=== PATIENT | male | born 1975 | race Caucasian/White ===

== ENCOUNTER 2017-11-26 16:23 | Emergency (ER) | payer OTHER ==
[~2017-11-26] VITALS: Ht 188 cm; Wt 127.6 kg
[2017-11-26 16:26] VITALS: Ht 188 cm; Wt 127.6 kg
[2017-11-26] MEDS ORDERED: SODIUM CHLORIDE 0.9% 1000ML 1,000 ML IV STA (16:42)
[2017-11-26 17:34] LABS: BASO % 0.8 %; BASO ABS # 0.05 K/uL (0-0.2); EOS % 3.1 %; EOS ABS # 0.19 K/uL (0-0.5); HEMATOCRIT 40.8 % (42-52); HEMOGLOBIN 14.9 g/dL (14.0-18.0); IG# 0.01 K/uL (0.00-0.02); LYMPH % 27.7 %; MEAN CELL VOLUME 88.9 fL (80-100); MEAN CORPUSCULAR HEMOGLOBIN 32.5 pg (25-34); MEAN CORPUSCULAR HGB CONC 36.5 g/dl (32-36); MEAN PLATELET VOLUME 9.8 fL (7.4-10.4); MONO % 7.3 %; MONO ABS # 0.45 K/uL (0.11-0.59); NEUT % 60.9 %; NEUT ABS # 3.74 K/uL (1.4-6.5); NUCLEATED RED BLOOD CELL ABS 0.07 K/uL (0-0); PLATELET COUNT 131 K/uL (130-400); RED CELL DISTRIBUTION WIDTH CV 12.6 % (11.5-14.5); RED CELL DISTRIBUTION WIDTH SD 40.1 fL (36.4-46.3); WHITE BLOOD COUNT 6.14 K/uL (4.8-10.8)
[2017-11-26 18:13] LABS: ALBUMIN 3.7 gm/dl (3.4-5.0); CALCIUM 8.5 mg/dl (8.5-10.1); CREATININE 0.98 mg/dl (0.60-1.40); TOTAL PROTEIN 7.3 gm/dl (6.4-8.2)
[2017-11-26 18:30] LABS: POTASSIUM 3.9 mmol/L (3.5-5.1)
--- NOTE | 2017-11-26 18:51 | EMERGENCY ROOM VISIT NOTE ---
History First contact with patient: 16:30 Chief Complaint: HYPERGLYCEMIA Stated Complaint: HIGH SUGAR Nursing Triage Summary: pt states no hx diabetes, informed pcp he had been urinating every hour, pt states seen by pcp and had elevated bsg, then sent to ED. History of Present Illness The patient is a 41 year old male who presents to the Emergency Room with complaints of high blood sugar. Patient states that he was seen by his primary care provider yesterday for complaint of increased urination and increased thirst over the past 1-2 months, he had blood work done at that time. Today his PCP called stating that his blood sugar and hemoglobin A1c were significantly elevated and referred him to the emergency department for further treatment. Patient has no previous history of diabetes, this is a new diagnosis. The patient denies any recent illness, and states he has been feeling well except for the increased thirst and urination. Patient denies any chest pain, shortness of breath, abdominal pain, nausea or vomiting, diarrhea, dysuria, blood in his urine, fevers or chills, headaches, dizziness or syncope, or rash. Review of Systems A complete 10 point review of systems was reviewed with the patient with pertinent positives and negatives as per history of present illness. All else were negative. Past Medical/Surgical History Medical Problems: (1) Appendicitis (2) No pertinent past medical history Surgical Problems: (1) H/O arthroscopic knee surgery Family History Patient reports no known family medical history. Social History Smoking Status: Never Smoker Alcohol Use: occasionally Drug Use: none Marital Status: Housing Status: lives with significant other Occupation Status: employed Current/Historical Medications Scheduled Metformin Hcl (Glucophage), 1 TAB PO BID Allergies No known allergies Physical Exam Vital Signs Date Time Temp Pulse Resp B/P (MAP) Pulse Ox O2 Delivery O2 Flow Rate FiO2 11/26/17 20:49 36.7 79 18 143/85 92 11/26/17 19:22 79 18 143/85 92 Room Air 11/26/17 16:26 36.7 90 18 140/95 94 Room Air Physical Exam CONSTITUTIONAL: Pleasant and cooperative. No acute distress. Well hydrated, well appearing and well nourished. HEENT: Normocephalic, atraumatic. Pupils equal, round and reactive to light, EOMI. TMs normal. Pharynx normal. Moist mucous membranes. NECK: Supple, full active range of motion without discomfort. RESPIRATORY: Clear to auscultation bilaterally with no wheezing, crackles, rhonchi or stridor. Equal expansion bilaterally. CARDIOVASCULAR: Regular rate and rhythm with no murmurs, rubs or gallops. Normal peripheral perfusion. No edema. GASTROINTESTINAL: Soft, nontender, nondistended. No palpable masses or HSM. Bowel sounds present in all quadrants. MUSCULOSKELETAL: Full range of motion of all joints without discomfort. INTEGUMENTARY: No rash or other significant dermatologic conditions noted. NEUROLOGIC: Alert and oriented X 4 with normal affect. Cranial nerves II-XII grossly intact. No focal neurologic deficits noted. Normal speech. Normal gait observed. Medical Decision & Procedures Laboratory Results 11/26/17 17:09 Red Blood Count 4.59, Mean Corpuscular Volume 88.9, Mean Corpuscular Hemoglobin 32.5, Mean Corpuscular Hemoglobin Concent 36.5, Mean Platelet Volume 9.8, Neutrophils (%) (Auto) 60.9, Lymphocytes (%) (Auto) 27.7, Monocytes (%) (Auto) 7.3, Eosinophils (%) (Auto) 3.1, Basophils (%) (Auto) 0.8, Neutrophils # (Auto) 3.74, Lymphocytes # (Auto) 1.70, Monocytes # (Auto) 0.45, Eosinophils # (Auto) 0.19, Basophils # (Auto) 0.05 11/26/17 17:09 Test 11/26/17 17:03 11/26/17 17:09 11/26/17 17:15 11/26/17 17:19 Bedside Glucose 324 mg/dl (70-99) White Blood Count 6.14 K/uL (4.8-10.8) Red Blood Count 4.59 M/uL (4.7-6.1) Hemoglobin 14.9 g/dL (14.0-18.0) Hematocrit 40.8 % (42-52) Mean Corpuscular Volume 88.9 fL (80-100) Mean Corpuscular Hemoglobin 32.5 pg (25-34) Mean Corpuscular Hemoglobin Concent 36.5 g/dl (32-36) Platelet Count 131 K/uL (130-400) Mean Platelet Volume 9.8 fL (7.4-10.4) Neutrophils (%) (Auto) 60.9 % Lymphocytes (%) (Auto) 27.7 % Monocytes (%) (Auto) 7.3 % Eosinophils (%) (Auto) 3.1 % Basophils (%) (Auto) 0.8 % Neutrophils # (Auto) 3.74 K/uL (1.4-6.5) Lymphocytes # (Auto) 1.70 K/uL (1.2-3.4) Monocytes # (Auto) 0.45 K/uL (0.11-0.59) Eosinophils # (Auto) 0.19 K/uL (0-0.5) Basophils # (Auto) 0.05 K/uL (0-0.2) RDW Standard Deviation 40.1 fL (36.4-46.3) RDW Coefficient of Variation 12.6 % (11.5-14.5) Immature Granulocyte % (Auto) 0.2 % Immature Granulocyte # (Auto) 0.01 K/uL (0.00-0.02) Nucleated RBC Absolute Count (auto) 0.07 K/uL (0-0) Nucleated Red Blood Cells % 1.1 % Anion Gap 11.0 mmol/L (3-11) Est Creatinine Clear Calc Drug Dose 143.7 ml/min Estimated GFR () 112.1 Estimated GFR (Non- 96.7 BUN/Creatinine Ratio 17.7 (10-20) Calcium Level 8.5 mg/dl (8.5-10.1) Magnesium Level 2.1 mg/dl (1.8-2.4) Total Bilirubin 0.7 mg/dl (0.2-1) Aspartate Amino Transf (AST/SGOT) 44 U/L (15-37) Alanine Aminotransferase (ALT/SGPT) 100 U/L (12-78) Alkaline Phosphatase 137 U/L (45-117) Total Protein 7.3 gm/dl (6.4-8.2) Albumin 3.7 gm/dl (3.4-5.0) Globulin 3.6 gm/dl (2.5-4.0) Albumin/Globulin Ratio 1.0 (0.9-2) Beta-Hydroxybutyric Acid 3.08 mg/dL (0.2-2.81) Venous Blood pH 7.39 (7.36-7.41) Venous Blood Partial Pressure CO2 47 mmHg (38.0-50.0) Venous Blood Partial Pressure O2 31 mmHg Venous Blood HCO3 27 mmol/L Venous Blood Oxygen Saturation 61.0 % Venous Blood Base Excess 1.8 mEq/L Urine Color YELLOW Urine Appearance CLEAR (CLEAR) Urine pH 5.0 (4.5-7.5) Urine Specific [place] > 1.045 (1.000-1.030) Urine Protein TRACE (NEG) Urine Glucose (UA) 3+ (NEG) Urine Ketones 1+ (NEG) Urine Occult Blood NEG (NEG) Urine Nitrite NEG (NEG) Urine Bilirubin NEG (NEG) Urine Urobilinogen NEG (NEG) Urine Leukocyte Esterase NEG (NEG) Urine WBC (Auto) 1-5 /hpf (0-5) Urine RBC (Auto) 0-4 /hpf (0-4) Urine Hyaline Casts (Auto) 1-5 /lpf (0-5) Urine Epithelial Cells (Auto) 5-10 /lpf (0-5) Urine Bacteria (Auto) NEG (NEG) Medications Administered Medications (Trade) Dose Ordered Sig/[place] Route Start Time Stop Time Status Last Admin Dose Admin Sodium Chloride 1,000 ml @ 999 mls/hr Q1H1M STAT IV 11/26/17 16:42 11/26/17 17:42 DC 11/26/17 17:18 999 MLS/HR Medical Decision CC: Patient presenting with complaint of high blood sugar Interpretation of Labs: No leukocytosis, no anemia, hyperglycemia, mild hyponatremia, no other significant electrolyte abnormalities, normal renal function, slight elevation in liver enzymes, normal T bili. Mildly elevated serum ketones. PH normal on venous blood gas. UA shows large glucose and small ketones, no infection. Differential Diagnosis: Includes, but not limited to new onset diabetes, hyperglycemia, DKA, dehydration, electrolyte abnormality, among others. Medication Reconciliation: I attest that I have personally reviewed the patient' s current medication list. Vital signs review: I reviewed the patient's vital signs and interpret them as follows: T: Afebrile; BP: Hypertensive; HR: Within normal limits; RR: Within normal limits; Pulse Ox: Within normal limits on room air. Blood pressure screening: The patient was found to have an elevated blood pressure and was referred to their primary doctor for recheck and further treatment. Summary: Patient was evaluated at bedside, history and physical exam performed. Patient is alert and oriented, no acute distress, resting comfortably in the stretcher. Patient appears well-hydrated. Orders were placed at bedside for labs, UA, IV fluids for hydration, workup to evaluate for DKA. Patient discussed with Dr. Buchanan, who agrees with my assessment and plan. Labs reviewed as above, there is hyperglycemia, but not significant, no evidence of DKA. I discussed all results with the patient, and plan for discharge. Patient states he was sent to the emergency department with expectations of being admitted, I explained to the patient and his significant other that he does not meet admission criteria at this time. Discussed with Dr. Buchanan, will start patient on metformin and have him follow up with his PCP in the next week for continued follow-up and management of his diabetes. Patient reassessed multiple times throughout ED stay, he remains well appearing , feeling well, with no complaints. I explained plan for discharge, and encouraged patient to follow closely with his primary care provider for further teaching and management of his diabetes. Rx for metformin 500 mg twice a day was sent to the pharmacy. Patient was educated on this medication. I also discussed strict return precautions with the patient to his symptoms worsen, he verbalized understanding. The patient was discharged home in stable condition and ambulatory. Medication Reconcilliation Current Medication List: was personally reviewed by me Blood Pressure Screening Patient's blood pressure: Elevated blood pressure Blood pressure disposition: Referred to PCP Impression Primary Impression: Hyperglycemia Additional Impression: Diabetes mellitus, new onset Departure Information Dispostion Home / Self-Care Condition GOOD Prescriptions Metformin Hcl (GLUCOPHAGE) 500 Mg Tab 1 TAB PO BID for 14 Days, #28 TAB Prov: Marielle Adame CRNP 11/26/17 Referrals Jak Ruiz M.D. (MEDICAL) (PCP) Patient Instructions ED Diabetes General Info, ED Diet Diabetic, ED Hyperglycemia New Susp Diabetes, My [facility] Additional Instructions You were treated in the emergency department today for your hyperglycemia (high blood sugar). It is suspected that you have a new diagnosis of diabetes mellitus. You have been prescribed metformin 500 mg to be taken one tablet twice a day. This is to treat diabetes. You should take this medication with a meal. Please follow-up with your primary care provider in the next week to have your blood work rechecked, and for ongoing management of your diabetes. Call tomorrow for an appointment. Please return to the emergency department for abdominal pain, persistent vomiting, severe diarrhea, dizziness or passing out, confusion, fevers/chills, or any other concerns. Work Instructions Return To Work: 1 day Problem Qualifiers
[2017-11-26] MEDS ORDERED: METF500T PO (20:18)
[2017-11-26 20:49] VITALS: BP 143/85; PULSE 79; TEMP 36.7; O2SAT 92
== END 2017-11-26 20:50 | disposition home or self-care (01) ==
LOC: C.EDB 16:24
DX: E11.65 Type 2 diabetes mellitus with hyperglycemia (principal)